=== PATIENT | female | born 1945 | race Asian ===

== ENCOUNTER 2017-12-28 03:01 | Emergency (ER) | payer MEDICARE ==
[~2017-12-28] VITALS: Ht 157.5 cm; Wt 92.4 kg
[2017-12-28] MEDS ORDERED: OXYMETAZOLINE NASAL SPRAY 0.05%, 15ML ONE (03:42)
[2017-12-28] MEDS ORDERED: OXYMETAZOLINE NASAL SPRAY 0.05%, 15ML NAS ONE (04:00)
[2017-12-28 04:37] VITALS: BP 172/82
[2017-12-28] MEDS ORDERED: SILVER NITRATE STICK TP ONE (05:33)
== END 2017-12-28 06:43 | disposition home or self-care (01) ==
LOC: ED 05:00
DX: R04.0 Epistaxis (principal)
CPT/HCPCS: 99282